=== PATIENT | male | born 1975 | race Caucasian/White ===

== ENCOUNTER 2020-08-28 06:58 | Outpatient (NON) | payer BC, SELFPAY ==
[2020-08-28 19:04] LABS: SARS-CoV-2 RNA PCR Positive
== END 2020-08-28 06:59 ==
LOC: ANHCOVIDDT 07:07
PROVIDERS: PCP Family Medicine; Visit Provider Family Medicine
DX: U07.1 COVID-19 (principal)
CPT/HCPCS: 87635; C9803; U0003

== ENCOUNTER 2020-10-09 07:49 | Outpatient (CLI) | payer BC, SELFPAY ==
--- NOTE | 2020-11-07 09:34 | WPDHOMESLEEP ---
Sleep Study - Home Unattended Date of Study: 10/09/20 Ordering Provider: Gurpreet Woodward MD Interpreting Physician: Marcela Pereyra MD Home Sleep Study Type: Watch PAT Height: 1.83 m Weight: 122.924 kg Body Mass Index: 36.7 Neck Circumference (inches): 18 [place]: 21 Reason for Sleep Study History of obstructive sleep apnea 2017, increased symptoms with weight gain Sleep History Nickolas Power is a 44-year-old male with a history of obstructive sleep apnea syndrome diagnosed in 2017. He has had increasing symptoms with additional weight gain. He frequently snores loudly enough that others complain about it. He occasionally awakens at night with heartburn, belching or coughing. He occasionally awakens from sleep feeling short of breath. He occasionally wakes up startled and notices that his heart is racing and at times he almost gasps for air. His snoring, dietetic assistant awakenings and excessive daytime sleepiness occur regularly. He rarely has trouble sleeping with a cold. He he occasionally has breathing problems at night observed by others. He occasionally sweats excessively at night and notices nighttime palpitations. He occasionally falls asleep during the day, occasionally involuntarily, occasionally while driving. He never falls asleep during physical effort. He does not have loss of muscle tone with strong emotion. 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 He does not feel paralyzed on waking or falling asleep and does not have vivid dreamlike scenes upon awakening or falling asleep. He is not afraid to go to sleep. He denies having nightmares. He occasionally remembers his dreams. He frequently has racing thoughts. He rarely feels sad or depressed. He occasionally has anxiety. He rarely has muscular tension. He occasionally notices parts of his body jerking and he occasionally kicks at night. He occasionally has crawling and aching feelings in his legs. He rarely has leg pain at night, rarely has morning jaw pain. He occasionally grind his teeth during sleep. He rarely is bothered by pain during the day, rarely is awakened by pain at night. He occasionally wakes up feeling stiff in the morning. He rarely wakes up with sore or achy muscles. He occasionally wakes up with pain in the neck and spine. He has headaches and palpitation problems he has memory problems. He reports gaining 25 lb in misti last year. His normal bedtime is 11:00 p.m. falling asleep in less than 5 minutes waking 1 or 2 times at night staying awake for a few minutes. While awaking goes to the bathroom. He wakes the morning at 5:00 a.m.. We can schedule is the same. He does not take naps. A short 10-15 minute nap may be refreshing. most of the time he feels good in the morning Habits: He has never smoked tobacco. Caffeine 5 or 6 servings of 32 oz caffeinated beverages. no alcohol or recreational drugs PMFSH Past Medical History Medical History Acute non-recurrent maxillary sinusitis Coronary artery disease without angina pectoris COVID-19 Encounter for prostate cancer screening GERD (gastroesophageal reflux disease) Mixed hyperlipidemia Obesity (BMI 35.0-39.9 without comorbidity) Obstructive sleep apnea Seasonal allergic rhinitis URI, acute Surgical History Surgical History (Updated 11/07/20 @ 09:43 by Marcela Pereyra MD) History of ankle surgery History of heart artery stent (~2017) History of shoulder surgery Family History Family History Father Diabetes mellitus Enlarged prostate Social History Social History Smoking status: Never smoker Alcohol intake: current Substance use: never Substance use type: does not use Medications Home Medications Medication Instructions Recorded Confirmed Type a
[2020-11-07 09:54] VITALS: BMI 36.7
== END 2020-10-09 07:50 | disposition home or self-care (01) ==
LOC: ANHCSM 07:51
PROVIDERS: PCP Family Medicine; Visit Provider Family Medicine
DX: G47.33 Obstructive sleep apnea (adult) (pediatric) (principal)
CPT/HCPCS: 95800

== ENCOUNTER → 2023-04-21 10:17 | Outpatient (CLI) | payer BC, SELFPAY ==
--- NOTE | ~2023-04-21 | XR_ITS ---
Right Shoulder Technique: AP and scapular Y views were obtained. Clinical History: Pain Findings: No fracture or dislocation is seen. Osseous alignment is anatomic. The glenohumeral and acr omioclavicular joint spaces are preserved. Soft tissues are unremarkable. Impression: Unremarkable right shoulder radiographs. Reviewed, dictated and finalized at [facility]. Impression: Unremarkable right shoulder radiographs.
== END ==
PROVIDERS: PCP Family Medicine; Visit Provider Family Medicine
DX: M25.511 Pain in right shoulder (principal)
CPT/HCPCS: 73030

== ENCOUNTER 2023-06-02 09:10 | Outpatient (CLI) | payer BC, SELFPAY ==
--- NOTE | 2023-06-02 11:00 | NEURO_ITS ---
Impression: # Complains of numbness of hands. # Bilateral evolving Carpal Tunnel Syndrome. # No ulnar neuropathy. # Normal needle/EMG. Nerve Conduction Studies Anti Sensory Summary Table Stim Site NR Peak (ms) P-T Amp (?V) Site1 Site2 Delta-P (ms) Dist (cm) Vito (m/s) Left Median Anti Sensory (2-3nd Digit) Wrist 3.6 32.7 Wrist 2-3nd Digit 3.6 14.0 39 Wrist 3.5 42.3 Wrist 2-3nd Digit 3.6 14.0 39 Right Median Anti Sensory (2-3nd Digit) Wrist 3.3 30.2 Wrist 2-3nd Digit 3.3 14.0 42 Wrist 3.4 18.9 Wrist 2-3nd Digit 3.3 14.0 42 Left Radial Anti Sensory (Base 1st Digit) Wrist 1.8 16.8 Wrist Base 1st Digit 1.8 0.0 Right Radial Anti Sensory (Base 1st Digit) Wrist 1.9 20.2 Wrist Base 1st Digit 1.9 0.0 Left Ulnar Anti Sensory (5th Digit) Wrist 2.3 24.7 Wrist 5th Digit 2.3 14.0 61 Right Ulnar Anti Sensory (5th Digit) Wrist 2.2 12.0 Wrist 5th Digit 2.2 14.0 64 Motor Summary Table Stim Site NR Onset (ms) O-P Amp (mV) Site1 Site2 Delta-0 (ms) Dist (cm) Vito (m/s) Left Median Motor (Abd Poll Brev) Wrist 3.8 4.7 Elbow Wrist 5.0 30.0 60 Elbow 8.8 4.5 Right Median Motor (Abd Poll Brev) Wrist 3.8 4.2 Elbow Wrist 5.4 30.0 56 Elbow 9.2 2.8 Left Ulnar Motor (Abd Dig Minimi) Wrist 2.4 5.3 A Elbow Wrist 5.6 32.0 57 A Elbow 8.0 4.7 Right Ulnar Motor (Abd Dig Minimi) Wrist 2.8 6.6 A Elbow Wrist 5.4 31.0 57 A Elbow 8.2 4.4 F Wave Studies NR F-Lat (ms) L-R F-Lat (ms) Left Median (Mrkrs) (Abd Poll Brev) 30.78 0.06 Right Median (Mrkrs) (Abd Poll Brev) 30.72 0.06 Left Ulnar (Mrkrs) (Abd Dig Min) 29.60 0.03 Right Ulnar (Mrkrs) (Abd Dig Min) 29.57 0.03 EMG Side Muscle Nerve Root Ins Act Fibs Amp Dur Recrt Comment Right 1stDorInt Ulnar C8-T1 Nml Nml Nml Nml Nml Right Ext Indicis Radial (Post Int) C7-8 Nml Nml Nml Nml Nml Right Ext Digitorum Radial (Post Int) C7-8 Nml Nml Nml Nml Nml Right BrachioRad Radial C5-6 Nml Nml Nml Nml Nml Right PronatorTeres Median C6-7 Nml Nml Nml Nml Nml Right Abd Poll Brev Median C8-T1 Nml Nml Nml Nml Nml Left 1stDorInt Ulnar C8-T1 Nml Nml Nml Nml Nml Left Ext Indicis Radial (Post Int) C7-8 Nml Nml Nml Nml Nml Left Ext Digitorum Radial (Post Int) C7-8 Nml Nml Nml Nml Nml Left BrachioRad Radial C5-6 Nml Nml Nml Nml Nml Left PronatorTeres Median C6-7 Nml Nml Nml Nml Nml Left Abd Poll Brev Median C8-T1 Nml Nml Nml Nml Nml MTDD
== END 2023-06-02 09:11 | disposition home or self-care (01) ==
PROVIDERS: PCP Family Medicine; Visit Provider Family Medicine
DX: R20.0 Anesthesia of skin (principal); G56.03 Carpal tunnel syndrome, bilateral upper limbs
CPT/HCPCS: 95886; 95911

== ENCOUNTER 2024-08-30 00:30 | Day surgery (SDC) | payer BC, SELFPAY ==
[2024-08-18 12:32] VITALS: BMI 35.7
[2024-08-30 08:48] VITALS: BP 133/89; PULSE 88; RESP 18; TEMP 37.1; O2SAT 98
[2024-08-30] MEDS: LACTATED RINGERS 1,000 ML 150 ML IV CONT (08:58)
--- NOTE | 2024-08-30 09:23 | PM.IMHP ---
H&P: HPI History of Present Illness Date/Time: 08/30/24 09:23 Chief Complaint: screening for colorectal cancer Narrative: this is a 48-year-old man who presents for colonoscopy. The has never had a colonoscopy before. He denies any hematochezia or melena. He denies any family history of colon cancer. Review of Systems Review of Systems: All systems reviewed & are unremarkable except as noted in HPI and below Constitutional: Constitutional: Denies chills, Denies fever(s), Denies headache(s) and Denies weight loss Eyes: Eyes: Denies change in vision ENT: Denies dizziness, Denies headache(s), Denies neck mass and Denies throat swelling Cardiovascular: Cardiovascular: Denies chest pain, Denies lightheadedness and Denies dyspnea Respiratory: Respiratory: Denies cough, Denies dyspnea and Denies wheezing Gastrointestinal: Gastrointestinal: Denies abdominal pain, Denies change in bowel habits, Denies nausea and Denies vomiting Genitourinary: Genitourinary: Denies hematuria and Denies dysuria Musculoskeletal: Musculoskeletal: Reports as per HPI Integumentary/Breasts: Skin/Breast: Reports as per HPI Neurologic: Denies dizziness and Denies headache(s) Allergic/Immunologic: Allergic/Immunologic: Denies throat swelling and Denies wheezing [facility] Past Medical History Medical History (Updated 05/31/24 @ 12:13 by Meghan Araya NP) Acute bronchitis Acute non-recurrent maxillary sinusitis Bilateral carpal tunnel syndrome (~2022) EMG and nerve conduction study on 06/02/2023 reveals bilateral carpal tunnel syndrome. BMI 35.0-35.9,adult BMI 36.0-36.9,adult BMI 37.0-37.9, adult BMI 38.0-38.9,adult Chronic ankle pain, bilateral Chronic pain in right shoulder X-ray of the right shoulder 04/21/2023 was completely normal. Coronary artery disease without angina pectoris (05/15/16) Two stents in the LAD with PTCA of the obtuse marginal 05/06/2016. COVID-19 (~08/28/20) Dyshidrotic eczema Encounter for prostate cancer screening PSA 0.4 on 04/08/2023. Encounter for wellness examination in adult GERD (gastroesophageal reflux disease) Lateral epicondylitis of right elbow (~08/2023) Male erectile dysfunction, unspecified Total testosterone 310 with free testosterone 56.2 on 04/21/2023. Mixed hyperlipidemia total cholesterol 126, HDL 34, triglycerides 138, LDL 70 with ratio 3.7 on 04/08/2023. Nail fungus Nocturia Obesity (BMI 30-39.9) Obesity (BMI 35.0-39.9 without comorbidity) Obstructive sleep apnea failure with CPAP Right rotator cuff tendinitis Screening for colon cancer Seasonal allergic rhinitis URI, acute Warts Surgical History Surgical History History of ankle surgery History of heart artery stent (~2016) History of shoulder surgery `2001 right rtc Family History Family History Father Diabetes mellitus Enlarged prostate Heart disease Mother Heart disease Grandparent Heart disease Grandparent Heart disease Social History Social History Smoking status: Former smoker Tobacco type: smokeless tobacco Smokeless tobacco user: snus Alcohol intake: current Drinks per week: 1 Alcohol use details: varies. 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 Spiritual care concerns: No Meds Home Medications and Allergies Home Medications Medication Instructions Recorded Confirmed Type aspirin 325 mg tablet 325 mg PO DAILY 12/21/19 08/30/24 History famotidine-Ca carb-mag hydrox 10 1 tablet PO BID PRN indigestion 12/21/19 08/30/24 History mg-800 mg-165 mg chewable tablet (Pepcid Complete) nitroglycerin 0.4 mg sublingual 0.4 mg sublingual Q5M PRN chest 10/01/22 08/30/24 Rx tablet pain #30 tabs atorvastatin 40 mg tablet 40 mg PO DAILY #90 tabs 03/11/24 08/30/24 Rx metoprolol succinate 25 mg 25 mg PO DAILY #90 tabs 03/11/24 08/30/24 Rx tablet,extended release 24 hr Allergies Allergy/AdvReac Type Severity Reaction Status Date / Time No Known Allergies Allergy Verified 08/30/24 08:47 Vital Signs Vital Signs - 24 hr 08/30/24 08:48 Temperature 98.7 F Pulse Rate 88 Respiratory Rate 18 Blood Pressure 133/89 Pulse Oximetry 98 Oxygen Delivery Room Air Exam Const: General: no acute distress and alert Orientation/consciousness: patient oriented x3 HENMT: Head: normocephalic and atraumatic Ears: hearing grossly normal bilaterally Face/Nose/Sinus: Normal nares present Mouth: Yes Normal oral and palatal mucosa present Eyes: Periorbital: periorbital findings normal Sclera: sclerae normal EOM: EOMs intact bilaterally Neck: Neck: normal visual inspection, no lymphadenopathy and trachea midline Chest: Chest palpation & inspection: normal inspection of the chest Resp: Effort & Inspection: normal respiratory effort Auscultation: clear to auscultation bilaterally Cardio: Jugular venous distension: no JVD Rate: regular rate Rhythm: regular rhythm Heart sounds: S1 normal heart sound present and S2 normal heart sound present Peripheral pulses: Peripheral pulses 2+ throughout GI: Inspection: normal to inspection GI Palp: Yes Soft to palpation, No Tenderness to palpation present (GI), No Guarding due to palpation present (GI) and No Rebound tenderness present Percussion: Yes normal to percussion Auscultation: normal bowel sounds : General: Yes no CVA tenderness Back/Spine/Pelvis: Back: no CVA tenderness Neuro: General: patient oriented x3, no focal motor deficits and CN's II-XI intact bilaterally Cognition (Neuro): normal cognition Speech: normal speech Motor exam (neuro): 5/5 motor strength present throughout Extrem: General: capillary refill normal and no clubbing, cyanosis or edema Assessment and Plan Assessment and plan (1) Screening for colon cancer: Code(s): Z12.11 - Encounter for screening for malignant neoplasm of colon Status: Acute Assessment and Plan: I have recommended colonoscopy. I have discussed the procedure, risks, benefits, and alternatives. Questions were answered. Patient is agreeable to proceed.
--- NOTE | 2024-08-30 10:02 | P.PNAN_ITS ---
Anes - Initial Pre Proc Eval Procedure: Operation Date: 08/30/24 09:30 Proposed Procedures p Screening Colonoscopy - Chalino Caban DO Date/Time: 08/30/24 10:02 Surgeon: Chalino Caban DO Pre Op Diagnosis: Screening for malignant neoplasm of colon Patient Data Age: 48 Gender: M Height: 1.83 m Weight: 119.7 kg Last Vital Signs Temp 37.1 C 08/30/24 08:48 Pulse 88 08/30/24 08:48 Resp 18 08/30/24 08:48 BP 133/89 08/30/24 08:48 Pulse Ox 98 08/30/24 08:48 O2 Del Method Room Air 08/30/24 08:48 Allergies Allergy/AdvReac Type Severity Reaction Status Date / Time No Known Allergies Allergy Verified 08/30/24 08:47 Home Medications Medication Instructions Recorded Confirmed Type aspirin 325 mg tablet 325 mg PO DAILY 12/21/19 08/30/24 History famotidine-Ca carb-mag hydrox 10 1 tablet PO BID PRN indigestion 12/21/19 08/30/24 History mg-800 mg-165 mg chewable tablet (Pepcid Complete) nitroglycerin 0.4 mg sublingual 0.4 mg sublingual Q5M PRN chest 10/01/22 08/30/24 Rx tablet pain #30 tabs atorvastatin 40 mg tablet 40 mg PO DAILY #90 tabs 03/11/24 08/30/24 Rx metoprolol succinate 25 mg 25 mg PO DAILY #90 tabs 03/11/24 08/30/24 Rx tablet,extended release 24 hr Patient hx anesthesia problems: none Family hx anesthesia problems: none Results Review: All pre-operative results and documents have been reviewed as part of the pre- operative evaluation. [facility] Past Medical History Medical History Acute bronchitis Acute non-recurrent maxillary sinusitis Bilateral carpal tunnel syndrome (~2022) EMG and nerve conduction study on 06/02/2023 reveals bilateral carpal tunnel syndrome. BMI 35.0-35.9,adult BMI 36.0-36.9,adult BMI 37.0-37.9, adult BMI 38.0-38.9,adult Chronic ankle pain, bilateral Chronic pain in right shoulder X-ray of the right shoulder 04/21/2023 was completely normal. Coronary artery disease without angina pectoris (05/15/16) Two stents in the LAD with PTCA of the obtuse marginal 05/06/2016. COVID-19 (~08/28/20) Dyshidrotic eczema Encounter for prostate cancer screening PSA 0.4 on 04/08/2023. Encounter for wellness examination in adult GERD (gastroesophageal reflux disease) Lateral epicondylitis of right elbow (~08/2023) Male erectile dysfunction, unspecified Total testosterone 310 with free testosterone 56.2 on 04/21/2023. Mixed hyperlipidemia total cholesterol 126, HDL 34, triglycerides 138, LDL 70 with ratio 3.7 on 04/08/2023. Nail fungus Nocturia Obesity (BMI 30-39.9) Obesity (BMI 35.0-39.9 without comorbidity) Obstructive sleep apnea failure with CPAP Right rotator cuff tendinitis Screening for colon cancer Seasonal allergic rhinitis URI, acute Warts Surgical History Surgical History History of ankle surgery History of heart artery stent (~2016) History of shoulder surgery `2001 right rtc Family History Family History Father Diabetes mellitus Enlarged prostate Heart disease Mother Heart disease Grandparent Heart disease Grandparent Heart disease Social History Social History Smoking status: Former smoker Tobacco type: smokeless tobacco Smokeless tobacco user: snus Alcohol intake: current Drinks per week: 1 Alcohol use details: varies. 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 Informed Consent: The patient's anesthetic plan and its attendant risks and benefits were discussed with the patient/family/POA. Questions were solicited and answers provided to the satisfaction of the patient/family/POA.
[2024-08-30 10:27] VITALS: BP 121/84; PULSE 82; RESP 17; O2SAT 93
[2024-08-30 10:37] VITALS: BP 129/88; PULSE 71; RESP 18; O2SAT 94
[2024-08-30 10:47] VITALS: BP 122/85; PULSE 82; RESP 19; O2SAT 96
== END 2024-08-30 10:58 | disposition home or self-care (01) ==
PROVIDERS: PCP Family Medicine; Visit Provider Surgery
PROC: 0DJD8ZZ Inspection of Lower Intestinal Tract, Via Natural or Artificial Opening Endoscopic (ICD-10-PCS; CPT 45378; principal; 2024-08-30 09:30)
DX: Z12.11 Encounter for screening for malignant neoplasm of colon (principal); G56.03 Carpal tunnel syndrome, bilateral upper limbs; D12.3 Benign neoplasm of transverse colon; E78.2 Mixed hyperlipidemia; K21.9 Gastro-esophageal reflux disease without esophagitis; G47.33 Obstructive sleep apnea (adult) (pediatric); I25.10 Atherosclerotic heart disease of native coronary artery without angina pectoris; N52.9 Male erectile dysfunction, unspecified; G89.29 Other chronic pain; M25.572 Pain in left ankle and joints of left foot; M25.571 Pain in right ankle and joints of right foot; M25.511 Pain in right shoulder; E66.9 Obesity, unspecified; Z68.35 Body mass index [BMI] 35.0-35.9, adult; Z79.82 Long term (current) use of aspirin; Z98.890 Other specified postprocedural states; Z95.5 Presence of coronary angioplasty implant and graft; Z87.891 Personal history of nicotine dependence; Z82.49 Family history of ischemic heart disease and other diseases of the circulatory system
CPT/HCPCS: 45385; 88305; J2704; J7120